=== PATIENT | male | born 1945 | race Two or more races ===

== ENCOUNTER 2025-04-07 14:44 | Emergency (ER) | payer OTHER ==
[~2025-04-07] VITALS: Ht 175.3 cm; Wt 129.0 kg
[2025-04-07 15:40] LABS: Hematocrit 42.0 % (41.0-53.0); Hemoglobin 14.7 g/dL (13.5-17.5); Mean Corpuscular Hemoglobin 31.8 pg (28.0-32.0); Mean Corpuscular Volume 90.7 fL (80.0-100.0); Nucleated Red Blood Cells % 0.0 %
[2025-04-07 15:48] LABS: Chloride 103 mmol/L (98-107); Potassium 4.2 mmol/L (3.5-5.1); Sodium 141 mmol/L (136-145)
[2025-04-07 15:49] LABS: Anion Gap 13 (5-15); Calcium 9.4 mg/dL (8.7-10.4); Carbon Dioxide 25 mmol/L (20-31)
[2025-04-07 15:54] LABS: BUN/Creatinine Ratio 13.8 (10.0-20.0); Blood Urea Nitrogen 19 mg/dL (9-23); Glucose 251 mg/dL (74-106)
--- NOTE | 2025-04-07 16:26 | ED.PDOC ---
GI ASSESSMENT HPI Comments 79 y/o M, with PMHx of HTN and DM presents to the ED for CC of abdominal pain. Patient states, he has been experiencing suprapubic abdominal pain that radiates to his back onset, x2days ago. Patient further relays, associated symptoms of nausea, vomiting, and constipation. Patient denies melena, diarrhea, fever, or chills. No other symptoms or modifying factors are present at this time. Chief Complaint: Abdominal Pain Time Seen by MD: 16:00 Reviewed Notes: Nurses Notes, Medications, Allergies Allergies: Coded Allergies: NO KNOWN ALLERGIES (Unverified , 04/07/25) Information Source: Patient Mode of Arrival: Ambulatory Timing: Days Duration: Since onset Prehospital treatment: None Vomitus: Watery Stool: Impaction Severity: Moderate Recent: None Recent Hx of: None Pain Location: Suprapubic Modifying Factors: Nothing Associated sign and symptoms: Nausea, Vomiting, Abdominal Pain Past Medical History PAST MEDICAL HISTORY: DM, HTN Surgical History: Appendectomy Family History Family History: Unknown Social History Smoker: Non-Smoker Alcohol: Denies ETOH Use Drugs: Denies Drug Use Lives In: Home Constitutional: denies: chills, diaphoresis, fatigue, fever, malaise, sweats, weakness, others EENTM: denies: blurred vision, double vision, ear bleeding, ear discharge, ear drainage, ear pain, ear ringing, eye pain, eye redness, hearing loss, mouth pain, mouth swelling, nasal discharge, nose bleeding, nose congestion, nose pain, photophobia, tearing, throat pain, throat swelling, voice changes, others Respiratory: denies: cough, hemoptysis, orthopnea, SOB at rest, shortness of breath, SOB with excertion, stridor, wheezing, others Cardiovascular: denies: chest pain, dizzy spells, diaphoresis, Dyspnea on exertion, edema, irregular heart beat, left arm pain, lightheadedness, palpitations, PND, syncope, others Gastrointestinal: reports: abdominal pain, nausea, vomiting; denies: abdomen d istended, blood streaked bowels, constipated, diarrhea, dysphagia, difficulty swallowing, hematemesis, melena, poor appetite, poor fluid intake, rectal bleeding, rectal pain, others Genitourinary: denies: burning, dysuria, flank pain, frequency, hematuria, incontinence, penile discharge, penile sore, pain, testicle pain, testicle swelling, urgency, others Neurological: denies: dizziness, fainting, headache, left sided numbness, left sided weakness, numbness, paresthesia, pre-existing deficit, right sided numbness, right sided weakness, seizure, speech problems, tingling, tremors, weakness, others Musculoskeletal: denies: back pain, gout, joint pain, joint swelling, muscle pain, muscle stiffness, neck pain, others Integumetry: denies: bruises, change in color, change in hair/nails, dryness, laceration, lesions, lumps, rash, wounds, others Allergic/Immunocompromised: denies: Difficulty Healing, Frequent Infections, Hives, Itching, others Hematologic/Lymphatic: denies: anemia, blood clots, easy bleeding, easy bruising, swollen glands, others Endocrine: denies: excessive hunger, excessive sweating, excessive thirst, excessive urination, flushing, intolerance to cold, intolerance to heat, unexplained weight gain, unexplained weight loss, others Psychiatric: denies: anxiety, bipolar disorder, depression, hopeless, panic disorder, schizophrenia, sleepless, suicidal, others All Other Systems: Reviewed and Negative Physical Exam General Appearance: Moderate Distress, Obese HEENT: Normal ENT Inspection, Pharynx Normal, TMs Normal Neck: Full Range of Motion, Non-Tender, Normal, Normal Inspection Respiratory: Chest Non-Tender, Lungs Clear, No Accessory Muscle Use, No Respiratory Distress, Normal Breath Sounds Cardiovascular: No Edema, No JVD, No Murmur, No Gallop, Normal Peripheral Pulses, Regular Rate/Rhythm Breast Exam: Deferred Gastrointestinal: No Organomegaly, Non Tender, No Pulsatile Mass, Normal Bowel Sounds, Soft Genitalia: Deferred Pelvic: Deferred Rectal: Deferred Extremities: No calf tenderness, Normal capillary refill, Normal inspection, Normal range of motion, Non-tender, No pedal edema Musculoskeletal : Apperance: Normal Neurologic: Alert, 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 Was a procedure done?: No GI differential Dx Differential Diagnosis: Constipation, Diverticular disease, Esophagitis, Gastritis/PUD, Gastroenteritis, Bacterial, Viral X-Ray, Labs, Meds, VS Vital Signs Date Time Temp Pulse Resp B/P (MAP) Pulse Ox O2 Delivery O2 Flow Rate FiO2 04/07/25 16:36 98.9 68 16 175/84 (114) 94 98.9 04/07/25 14:46 97.7 16 161/95 94 97.7 Lab Test 04/07/25 15:05 Range/Units White Blood Count 11.3 H 4.4-10.8 10^3/uL Red Blood Count 4.63 4.5-5.90 10^6/uL Hemoglobin 14.7 13.5-17.5 g/dL Hematocrit 42.0 41.0-53.0 % Mean Corpuscular Volume 90.7 80.0-100.0 fL Mean Corpuscular Hemoglobin 31.8 28.0-32.0 pg Mean Corpuscular Hemoglobin Concent 35.1 32.0-36.0 g/dL Red Cell Distribution Width 13.1 11.8-14.3 % Platelet Count 169 140-450 10^3/uL Mean Platelet Volume 8.7 6.9-10.8 fL Neutrophils (%) (Auto) 76.1 37.0-80.0 % Lymphocytes (%) (Auto) 14.0 10.0-50.0 % Monocytes (%) (Auto) 9.2 0.0-12.0 % Eosinophils (%) (Auto) 0.2 0.0-7.0 % Basophils (%) (Auto) 0.5 0.0-2.0 % Neutrophils # (Auto) 8.6 1.6-8.6 10 ^3/uL Lymphocytes # (Auto) 1.6 0.4-5.4 10 ^3/uL Monocytes # (Auto) 1.0 0-1.3 10 ^3/uL Eosinophils # (Auto) 0 0-0.8 10 ^3/uL Basophils # (Auto) 0.1 0-0.2 10 ^3/uL Nucleated Red Blood Cells 0.0 % Sodium Level 141 136-145 mmol/L Potassium Level 4.2 3.5-5.1 mmol/L Chloride Level 103 98-107 mmol/L Carbon Dioxide Level 25 20-31 mmol/L Anion Gap 13 5-15 Blood Urea Nitrogen 19 9-23 mg/dL Creatinine 1.38 H 0.700-1.30 mg/dL Glomerular Filtration Rate Calc 52 >90 mL/min BUN/Creatinine Ratio 13.8 10.0-20.0 Serum Glucose 251 H 74-106 mg/dL Calcium Level 9.4 8.7-10.4 mg/dL Patient alert. Complaining of abdominal discomfort. Vitals stable. Answering all questions. Blood sugar elevated. Neutrophils within normal limits. No sign of any acute disease. WBC slightly elevated. Possible dehydration. Was told to drink plenty of fluids. Blood pressure continues to be elevated. Was given clonidine. Abdomen is soft nontender. No sign of distress. No leg swelling. No shortness a breath. No chest pain. Possible gastroenteritis. Was given prescription of Keflex Flagyl. Explained to the family. Was told to follow up with his primary care physician. Was told to come back if there is any problem. Time of 1ST Reevaluation: 16:30 Reevaluation 1ST: Unchanged Patient Education/Counseling: Diagnosis, Treatment Family Education/Counseling: Diagnosis, Treatment SEPSIS Sepsis Screen Date sepsis recognized/suspect: Apr 07, 2025 Time Sepsis recognized/suspect: 1449 Recent Procedure: No On Antibiotic Therapy: No Respiratory Rate >20: No Heart Rate >90: No Temp<36 C (96.8 F) or >38.3 C: No SBP <90 or MAP <65 mmHG: No New Acute Mental Status Change: No Is the patient on CPAP, BIPAP,: No Vital Signs Date Time Temp Pulse Resp B/P (MAP) Pulse Ox O2 Delivery O2 Flow Rate FiO2 04/07/25 16:36 98.9 68 16 175/84 (114) 94 98.9 04/07/25 14:46 97.7 16 161/95 94 97.7 Laboratory Tests Test 04/07/25 15:05 White Blood Count 11.3 10^3/uL (4.4-10.8) H Departure 1 Departure Time of Disposition: 16:58 Impression: Primary Impression: Gastroenteritis Additional Impressions: Hypertensive urgency Uncontrolled diabetes mellitus Qualified Codes: E13.65 - Other specified diabetes mellitus with hyperglycemia Disposition: 01 HOME / SELF CARE / HOMELESS Condition: Good e-Prescriptions Metronidazole (Flagyl) 500 Mg Tab 1 TAB PO TID for 7 Days, #21 TAB Prov: BATSHEVA JERONIMO MD 04/07/25 Cephalexin Monohydrate (Cephalexin) 500 Mg Cap 1 CAP PO QID for 5 Days, #20 CAP Prov: BATSHEVA JERONIMO MD 04/07/25 Discharged With: Self Critical Care Note Critical Care Time?: No Stability Stability form required: No Heart Score Heart Score: Heart Score Response (Comments) Value History N/A 0 EKG N/A 0 Age N/A 0 Risk Factors N/A 0 Troponin N/A 0 Total 0 I personally scribed for BATSHEVA JERONIMO MD ([email or web address]) on 04/07/25 at 16:26. Electronically submitted by Alexia Fonseca ([email or web address]). BATSHEVA JERONIMO MD Apr 07, 2025 16:26
[2025-04-07 16:36] VITALS: BP 175/84; PULSE 68; RESP 16; TEMP 98.9; O2SAT 94
[2025-04-07] MEDS ORDERED: METR-344 PO (17:00)
[2025-04-07] MEDS ORDERED: KETOROLAC TROMETH 60MG/2ML VIAL IM ONE (17:00)
[2025-04-07] MEDS ORDERED: HYDROcodone-ACET 10/325MG TAB PO ONE (17:00)
[2025-04-07] MEDS ORDERED: CEPH500C PO (17:00)
[2025-04-07 20:46] LABS: Urine Protein, UAD 1+ (Negative)
== END 2025-04-07 19:41 | disposition home or self-care (01) ==
LOC: ER 14:44
DX: K52.9 Noninfective gastroenteritis and colitis, unspecified (principal); I16.0 Hypertensive urgency; E11.65 Type 2 diabetes mellitus with hyperglycemia; I10 Essential (primary) hypertension; Z90.49 Acquired absence of other specified parts of digestive tract
CPT/HCPCS: 36415; 80048; 81001; 85025